=== PATIENT | female | born 1930 | race Caucasian/White ===

== ENCOUNTER 2018-03-04 13:11 | Emergency (ER) | payer MEDICARE ==
[2018-03-04 13:48] LABS: Bilirubin Negative (Negative); Blood, Urine Moderate (Negative); Glucose, Urine (Dipstick) Negative (Negative); Leukocyte Large (Negative); Nitrite Positive (Negative); Protein, Urine (Dipstick) 100 mg/dL (Neg-Trace); Specific Gravity, Urine 1.015 (1.005-1.030); Urobilinogen 0.2 mg/dL (0.2-1.0)
[2018-03-04 13:49] LABS: Clarity Cloudy (Clear)
[2018-03-04 13:57] LABS: Bacteria/HPF 4+ HPF (None Seen)
== END 2018-03-04 14:14 | disposition home or self-care (01) ==
LOC: SCSER 13:11
DX: N39.0 Urinary tract infection, site not specified (principal)
CPT/HCPCS: 81003; 81015; 87077; 87086; 87186; 99283

== ENCOUNTER 2018-05-21 14:00 | Outpatient (CLI) | payer MEDICARE ==
--- NOTE | 2018-05-21 15:22 | RAD ---
SKULL 3 VIEW SERIES: INDICATION: MRI screening for shunt catheter evaluation. FINDINGS: There is evidence of a mechanical programmable CSF shunt valve which overlies the left parietal skyler rium. This is consistent with a Medtronic Strata valve. This does preclude MR imaging as this will require attenuation both preceding and subsequent to the patient's MRI exam per standard MRI safety protocol. IMPRESSION: Evidence of a Medtronic Strata valve, which is a programmable cerebrospinal fluid shunt valve, requir ing direct attention both preceding and subsequent to patient's MRI exam, per standard MRI safety pro tocol. The patient's ordering physician's office will be notified by the retail service technician for arrangements in this regard. POS: CASE
== END 2018-05-21 14:01 ==
LOC: SCSMRI 14:00
PROVIDERS: ATTEND Orthopaedic Surgery
DX: Z45.41 Encounter for adjustment and management of cerebrospinal fluid drainage device (principal)
CPT/HCPCS: 70250

== ENCOUNTER 2018-06-08 13:47 | Outpatient (CLI) | payer MEDICARE ==
--- NOTE | 2018-06-08 16:47 | CT ---
CT CERVICAL SPINE NONCONTRAST: History: Neck pain. Right arm radiculopathy. FINDINGS: Disc space narrowing at each level. Vertebral heights are maintained. Shunt catheter is partially visualized along the right side of the neck. Reverse of the normal lordotic curvature. C2-3: Osteophytosis. Central canal and neural foramina are patent. C3-4: Minimal degenerative spondylolisthesis. Posterior osteophyte/disc complex. Prominent circumfere ntial degenerative changes. Moderate stenosis central canal. Severe stenosis left neural foramen. C4-5: Posterior osteophyte/disc complex. Circumferential degenerative changes with severe stenosis ce ntral canal. Moderate right and severe left foraminal stenosis. C5-6: Posterior osteophyte/disc complex. Circumferential degenerative changes. Severe stenosis centra l canal and right neural foramen. Mild stenosis left neural foramen. C6-7: Prominent posterior osteophyte/disc complex. Circumferential degenerative changes. Severe steno sis of the central canal. Severe right and mild left foraminal stenoses. C7-T1: Mild osteophytosis. Central canal and neural foramina are patent. IMPRESSION: Severe multilevel degenerative changes throughout the cervical spine as detailed above, including sherrie tral canal and right foraminal stenoses, most severe at the C6-7 level. POS: [facility]
== END 2018-06-08 13:48 | disposition home or self-care (01) ==
LOC: SCSCT 13:47
PROVIDERS: ATTEND Specialist
DX: M47.22 Other spondylosis with radiculopathy, cervical region (principal); M43.12 Spondylolisthesis, cervical region; M48.02 Spinal stenosis, cervical region; M99.81 Other biomechanical lesions of cervical region
CPT/HCPCS: 72125

== ENCOUNTER 2018-07-22 09:01 | Inpatient (IN) | payer MEDICARE ==
[2018-07-22 09:31] LABS: Hemoglobin 9.4 g/dL (12.0-16.0); Mean Corpuscular HGB CONC 30.1 g/dL (32.0-36.0); Mean Corpuscular Volume 63.2 fL (78.0-98.0); Mean Platelet Volume 7.9 fL (7.4-10.4); Platelet Count 141 thou/uL (130-400); RBC Distribution Width 12.5 % (11.5-14.5); Red Blood Cell (RBC) Count 4.92 mill/uL (4.20-5.40); White Blood Cell (WBC) Count 11.4 thou/uL (4.8-10.8)
[2018-07-22 09:40] LABS: ALT (SGPT) 49 U/L (8-55); AST (SGOT) 43 U/L (5-34); Alkaline Phosphatase 86 U/L (40-150); Anion Gap 15 mmol/L (10-20); BUN (Urea Nitrogen) 46 mg/dL (9.8-20.1); Bilirubin, Total 0.8 mg/dL (0.2-1.2); CK (CPK) 45 U/L (29-168); Calc. Creatinine Clearance 0 mL/min (70-130); Calcium 10.2 mg/dL (7.8-10.44); Carbon Dioxide 20 mmol/L (23-31); Chloride 109 mmol/L (98-107); Estimated GFR-MDRD 16; Globulin 2.6 g/dL (2.4-3.5); Glucose 156 mg/dL (83-110); Potassium 4.4 mmol/L (3.5-5.1); Protein, Total 6.6 g/dL (6.0-8.3); Sodium 140 mmol/L (136-145)
[2018-07-22 09:41] LABS: CKMB 0.7 ng/mL (0-6.6); Troponin I 0.019 ng/mL (< 0.028)
[2018-07-22 09:47] LABS: #Basophils 0.1 thou/uL (0.0-0.2); #Eosinphils 0.1 thou/uL (0.0-0.7); #Lymphocytes 1.7 thou/uL (1.20-3.40); #Monocytes 0.8 thou/uL (0.11-0.59); #Neutrophils 8.8 thou/uL (1.40-6.50); %Basophils 0.5 % (0.0-1.0); %Eosinophils 0.5 % (0.0-10.0); %Lymphocytes 14.6 % (21.0-51.0); %Neutrophils 77.4 % (42.0-75.0); Elliptocytes SLIGHT = 2-5 cells (100X) (0-1/hpf); Hypochromia SLIGHT = 6-15 cells (100X) (0-5/hpf); MDiff Complete? YES; Microcytosis MODERATE=15-30 cells (100X) (0-5/hpf); Ovalocytes SLIGHT = 2-5 cells (100X) (0-1/hpf); PLT Morphology Comment Appears Adequate; Polychromasia SLIGHT = 2-3 cells (100X) (0-2/hpf); Schistocytes SLIGHT = 2-5 cells (100X) (0-1/hpf)
--- NOTE | 2018-07-22 09:54 | RAD ---
PORTABLE UPRIGHT CHEST ONE VIEW: HISTORY: An 88-year-old female with a history of weakness for several weeks, dehydration, and vomiting. FINDINGS: A right ventriculoperitoneal shunt tube is noted. Monitor leads overly the chest. Heart size is wit hin normal limits. The lungs are clear. IMPRESSION: Right ventriculoperitoneal shunt tube. No acute intrathoracic disease. Atherosclerosis of the aorta . POS: C
[2018-07-22] MEDS ORDERED: Adacel (T-DAP) 0.5 ML VIAL ONE (10:09)
[2018-07-22] MEDS ORDERED: Ondansetron HCl/PF 4 MG/2 ML Vial ONE (10:09)
[2018-07-22 11:24] LABS: Bilirubin Negative (Negative); Blood, Urine Small (Negative); Clarity Cloudy (Clear); Glucose, Urine (Dipstick) Negative (Negative); Leukocyte Large (Negative); Nitrite Negative (Negative); Protein, Urine (Dipstick) 30 mg/dL (Neg-Trace); Urobilinogen 0.2 mg/dL (0.2-1.0)
[2018-07-22 11:31] LABS: Bacteria/HPF 2+ HPF (None Seen); Hyaline Casts/LPF NONE SEEN LPF (0-3 Hyaline); RBC/HPF 0-3 HPF (0-3); Squamous Epithelial 0-3 HPF (0-3); WBC/HPF 21-50 HPF (0-3)
[2018-07-22] MEDS ORDERED: Sodium Chloride 0.9% 100 ML ONE (12:13)
[2018-07-22] MEDS ORDERED: cefTRIAXone\\ROCEPHIN 1 GM VIAL ONE (12:13)
[2018-07-22 14:31] VITALS: BMI 27.3
[2018-07-22] MEDS ORDERED: traMADol HCl 50 MG TAB PO PRN (15:22)
[2018-07-22] MEDS ORDERED: Benzonatate 100 MG CAP PO PRN (15:22)
[2018-07-22] MEDS ORDERED: Bisacodyl 5 MG TAB PO PRN ×2 (15:22)
[2018-07-22] MEDS ORDERED: Ondansetron HCl/PF 4 MG/2 ML Vial IVP PRN (15:22)
[2018-07-22] MEDS ORDERED: Calcium Carbonate 500 MG ChewTAB PO PRN (15:22)
[2018-07-22] MEDS ORDERED: Loratadine 10 MG TAB PO PRN (15:22)
[2018-07-22] MEDS ORDERED: Mag-Al 1200 mg/1200 mg/30 ML UDCUP PO PRN (15:22)
[2018-07-22] MEDS ORDERED: hydrALAZINE 20 MG/ML VIAL SLOW IVP PRN (15:22)
[2018-07-22] MEDS ORDERED: Nitroglycerin 0.4 MG TAB (25 Tab Bottle) SL PRN (15:22)
[2018-07-22] MEDS ORDERED: cloNIDine 0.1 MG TAB PO PRN (15:22)
[2018-07-22] MEDS ORDERED: Senokot 8.6 MG TAB PO PRN ×2 (15:22)
[2018-07-22] MEDS ORDERED: Amlodipine 10 MG TAB PO SCH (15:30)
[2018-07-22] MEDS: Sodium Chloride 0.9% 1,000 ML IV SCH ×2 (15:46→15:52)
--- NOTE | 2018-07-22 16:41 | HP ---
DATE OF ADMISSION: 07/22/2018 PRIMARY CARE PHYSICIAN: Dr. John Zavala. CHIEF COMPLAINT: Fall and inability to get up. HISTORY OF PRESENT ILLNESS: Ms. Zepeda is a very pleasant 88-year-old female with past medical his tory of hypertension and dyslipidemia who presented to [facility] with above-ment ioned complaint. History is mainly obtained by the patient herself. Electronic medical records have been reviewed. Ms. Zepeda reports that usually she is quite weak at home, but gets better after she wakes up and e at some breakfast in the morning. She has to use a cane to walk around. She has been feeling a trung le more weak than usual for the last couple of days. She denies any recent illnesses. No fever, chi lls, no nausea, vomiting, constipation, or diarrhea. No chest pain, dizziness, palpitations or short ness of breath. She reports that she was sitting at the edge of the bed last night and when she trie d to get up, she just slid down. She did not fall or hit her head. Her tried to help her up , but was unable to do so. So, she slept on the floor all night with some blanket and pillows and he r called 911 this morning. Upon presentation to the emergency room, she was hemodynamically stable with blood pressure 149/59, p ulse of 99, and afebrile. Her 12-lead EKG was unremarkable. Her lab examination showed evidence of acute renal insufficiency with a GFR of 16, baseline unknown a s well as urinalysis consistent with urinary tract infection. The patient does report that she was s een by primary care physician yesterday and was given nitrofurantoin, which she has barely taken. Sh michele has been having complaints of dysuria. She was given Rocephin as well as DTaP in the emergency room along with IV fluids and is now being ad mitted to the hospital under observation status for urinary tract infection and acute renal insuffici ency, likely related to dehydration. Her creatinine kinase is normal at 45. PAST MEDICAL HISTORY: Hypertension. PAST SURGICAL HISTORY: Hysterectomy and a brain shunt operation what sounds like a normal pressure h ydrocephalus. PSYCHIATRIC HISTORY: None. SOCIAL HISTORY: She is and lives with her who helps around the house. No history of drug, tobacco or alcohol abuse. FAMILY HISTORY: Significant for breast cancer in her mother as well as colon cancer in her father. The patient has had routine mammograms and colonoscopy, but she has quit getting it done because of a dvanced age. ALLERGIES: CIPROFLOXACIN. CURRENT MEDICATION: Nebivolol 10 mg daily, amlodipine/valsartan 10/320 one tablet p.o. daily. CODE STATUS: DO NOT RESUSCITATE, discussed with the patient in detail. REVIEW OF SYSTEMS: A 12-point review of systems is done. It is negative except for those mentioned in the history and physical. LABORATORY DATA: CBC shows WBCs 11.4, hemoglobin 9.4, platelet count of 141, microcytic hypochromic anemia 77% neutrophils. Serum chemistry shows bicarbonate 20, BUN 46, creatinine 2.75, blood sugar 156, AST 43. Cardiac enzy mes unremarkable. Urinalysis has some protein, large leukocyte esterase, +2 bacteria and WBCs. Ches t x-ray by my review has no evidence to suggest acute pulmonary edema or infiltrate. A right ventric uloperitoneal shunt tube is seen. A 12-lead EKG by my review shows normal sinus rhythm without acute ST or T-wave changes. PHYSICAL EXAMINATION: VITAL SIGNS: Temperature 98, pulse of 84, respirations 18, saturating 93% on room air, blood pressur e 150/58. GENERAL: She does appear pale, but in no acute distress. She is comfortably lying in bed, little [address] of hearing. HEENT: Mucous membranes are slightly dry. No oropharyngeal exudate or erythema. Head is normocepha lic, atraumatic. Pupils equal, reactive to light and accommodation. Extraocular movement intact. NECK: Supple without any lymphadenopathy, JVD or bruit. CHEST: Clear to auscultation without any wheezing, rales or rhonchi. Rate and rhythm is regular, so ft, systolic murmur is heard at the second intercostal space. ABDOMEN: Soft, nontender, nondistended, moderately obese. No rebound, guarding or rigidity. EXTREMITIES: Free of any cyanosis, clubbing, or edema. NEUROLOGIC: Nonfocal. SKIN: Free of any rashes or bruises. Feel warm and dry to touch. PSYCHIATRIC: Normal affect. IMPRESSION AND PLAN: 1. Acute renal insufficiency. This is likely a combination of dehydration with a urinary tract infe ction. The patient will be treated with IV fluids. She does tell me that she has seen a nephrologis t in the past in the [place] area and was told that her kidney function 70%. I do not know what this means. The patient might have some baseline chronic kidney disease, but no previous labs are availa ble for review. We will repeat labs in the morning and avoid any nephrotoxic medications. At this t [place], we will hold her ARBs in the light of acute renal insufficiency. 2. Urinary tract infection. Urine cultures, blood cultures have been obtained in [facility] erg[facility]. We will follow the results. Continue Rocephin for now. 3. Microcytic hypochromic anemia. The review of the smear has been submitted for pathologist review . We will check iron indices as well as B12, folic acid levels. Likely iron deficiency anemia. She will be started on iron supplements if that is the case. We will also check TSH to rule out hypothy roidism as a cause. 4. Hypertension, elevated blood pressure for now. We will restart her home medications and add p.r. n. antihypertensives. 5. History of normal pressure hydrocephalus, status post SPINNER IRON shunt. Currently, stable status. 6. Code status: DO NOT RESUSCITATE or INTUBATE as discussed with the patient. 7. Deep venous thrombosis and gastrointestinal prophylaxis. 8. Fall. We will have OT, PT evaluate her and had case management help with setting up of home heal th as per the patient wishes. She does not wish to go to rehabilitation. DISPOSITION: Ms. Zepeda is currently being admitted for acute renal insufficiency and urinary trac t infection after sustaining a fall and inability to get up. Further management will depend upon her clinical course. Currently, she is observation status.
[2018-07-22 18:08] LABS: Iron 9 ug/dL (50-170); Iron Binding Capacity, Total 249 mcg/dL (265-497)
[2018-07-23] MEDS: Sodium Chloride 0.9% 1,000 ML IV SCH ×5 (01:55→13:21)
[2018-07-23 05:33] LABS: Anion Gap 10 mmol/L (10-20); BUN (Urea Nitrogen) 34 mg/dL (9.8-20.1); Calc. Creatinine Clearance 20 mL/min (70-130); Calcium 8.6 mg/dL (7.8-10.44); Carbon Dioxide 20 mmol/L (23-31); Chloride 117 mmol/L (98-107); Estimated GFR-MDRD 20; Glucose 95 mg/dL (83-110); Potassium 4.4 mmol/L (3.5-5.1); Sodium 143 mmol/L (136-145)
[2018-07-23 05:51] LABS: #Eosinphils 0.1 thou/uL (0.0-0.7); #Lymphocytes 1.5 thou/uL (1.20-3.40); #Monocytes 0.4 thou/uL (0.11-0.59); #Neutrophils 4.5 thou/uL (1.40-6.50); %Basophils 0.2 % (0.0-1.0); %Eosinophils 0.9 % (0.0-10.0); %Lymphocytes 23.1 % (21.0-51.0); %Monocytes 6.6 % (0.0-10.0); %Neutrophils 69.2 % (42.0-75.0); Hemoglobin 7.8 g/dL (12.0-16.0); Mean Corpuscular HGB CONC 31.8 g/dL (32.0-36.0); Mean Corpuscular Volume 62.9 fL (78.0-98.0); Mean Platelet Volume 10.2 fL (7.4-10.4); Platelet Count 121 thou/uL (130-400); RBC Distribution Width 14.8 % (11.5-14.5); Red Blood Cell (RBC) Count 3.88 mill/uL (4.20-5.40); White Blood Cell (WBC) Count 6.5 thou/uL (4.8-10.8)
[2018-07-23 06:05] LABS: Folate (Folic Acid) 15.4 ng/mL (7.0-31.4)
[2018-07-23] MEDS ORDERED: Enoxaparin Sodium 40 MG/0.4 ML SYRINGE SC SCH (09:00)
[2018-07-23] MEDS ORDERED: IRON SUCROSE COMPLEX 100 MG/5 ML SLOW IVP SCH (09:00)
[2018-07-23] MEDS: Amlodipine 10 MG TAB PO SCH (09:21)
[2018-07-23] MEDS: Nebivolol HCl 5 MG TAB PO SCH (09:21)
[2018-07-23] MEDS ORDERED: Sodium Ferric Gluconate 250 MG in Sodium Chloride 0.9% 100 ML IVPB SCH (10:00)
--- NOTE | 2018-07-23 11:05 | CON ---
DATE OF CONSULTATION: 07/23/2018 HISTORY OF PRESENT ILLNESS: Ms. Zepeda is an 88-year-old white female with known history of chroni c renal failure, hypertension, and admitted for generalized weakness. She has history of decreased p .o. intake. She also had a fall recently. She has been admitted for volume repletion due to a possi bility of volume depletion. We are now being consulted for her chronic renal failure. Please note t hat the patient has been told that she has renal dysfunction. She was seen by a [facility] telemarketing agent at one time. Further evaluate her chronic renal failure. Please note a renal ultrasound has already been ordered. REVIEW OF SYSTEMS: Positive for generalized malaise. Positive for decreased p.o. intake. No chest pain or shortness of breath, no nausea, no vomiting, no gross hematuria, no dysuria, no fever or chil ls, no abdominal pain, no chest pain or shortness of breath, no abdominal pain. Appetite and energy level is decreased. HOME MEDICATIONS: Nitrofurantoin 100 mg, currently not taking, Bystolic 10 mg daily, amlodipine/vals kwadwo 10/320 once a day. PAST MEDICAL HISTORY: 1. Chronic renal failure - ____ etiology. 2. Longstanding hypertension. PAST SURGICAL HISTORY: 1. Status post hysterectomy. 2. Status post CORE DRILLER HELPER shunt placement. 3. Status post colonoscopy. SOCIAL HISTORY: The patient is and lives with her . She lives in [place]. O ne child. No history of smoking, no alcohol intake, no IV drug abuse. Retired insurance worker. Ed ucation; high school. Denies any blood transfusion. ALLERGIES: CIPROFLOXACIN. TRAUMA: Status post fall. IMMUNIZATIONS: Up to date. HOSPITALIZATIONS: Please see past medical history. FAMILY HISTORY: No family history of ESRD. PHYSICAL EXAMINATION: VITAL SIGNS: Blood pressure this 144/64, heart rate 79, respiratory rate 20, temperature 97.5, pulse ox 96%. GENERAL: Awake, alert, comfortable, supine. SKIN: Decreased turgor. HEENT: Pale conjunctivae, anicteric sclerae. NECK: No neck mass, no carotid bruits, no JVD. CHEST: No deformities. LUNGS: Clear breath sounds, no wheezing, no crackles. HEART: Normal sinus rhythm. No murmur, no gallops or rubs. ABDOMEN: Globular, soft, nontender, no masses. EXTREMITIES: No edema. NEUROLOGIC: Moving all extremities. No tremors, no asterixis, no ataxia, oriented in 3 spheres. MEDICATIONS Norvasc 10 mg daily, Tessalon 100 mg q.4 hourly p.r.n., Dulcolax 10 mg daily, calcium ca rbonate 1000 mg q.4 hours, Catapres 0.14 mg p.r.n., amlodipine is 10 mg daily, Lovenox 40 mg subcu da ekaterina, Bystolic 10 mg daily, normal saline at 50 mL per hour, Ultram 50 mg q.4h. p.r.n. LABORATORY: 07/23/2018 - White count 6.5, hemoglobin 7.8. Sodium 143, potassium 4.4, chloride 117, carbon dioxide 20, BUN 34, creatinine 2.36, glucose 95, calcium 8.6. 07/22/2018 - Creatinine 2.75. Urinalysis; protein is 30, WBC 21-50, RBCs 0-3, bacteria 2+. Renal ultrasound is pending. Chest x-ray shows no overt CHF. ASSESSMENT AND PLAN: 1. Acute kidney injury on top of her chronic renal failure, consider superimposed prerenal azotemia from volume depletion. Agree to hold off valsartan to see if we can improve the renal function furth er. No indication for any dialytic intervention. 2. Chronic renal failure with proteinuria, longstanding history of hypertension, consider the possib ility of hypertensive nephropathy. Renal ultrasound is pending. 3. Hypertension, adequate control. Continue current blood pressure meds. Thank you for the consult. We will continue to follow. Review of the urine sediment does not sugges t she has acute tubular necrosis. I agree with current management.
[2018-07-23] MEDS: cefTRIAXone\\ROCEPHIN 1 GM in Sodium Chloride 0.9% 100 ML IVPB SCH (11:26)
--- NOTE | 2018-07-23 12:21 | ULT ---
RENAL ULTRASOUND: DATE: 07/23/18. COMPARISON: None. HISTORY: Acute kidney insufficiency, chronic kidney disease. TECHNIQUE: Multiplanar, coats scale, sonographic imaging of the kidneys and urinary bladder obtained. FINDINGS: The right kidney measures 8.7 x 5.0 x 5.4 cm. The left kidney measures 9.7 x 4.8 x 5.8 cm. There is a cyst in the upper pole of the right kidney measuring 2.7 x 2.1 x 2.2 cm. There is no donna d renal mass, hydronephrosis, or renal stone noted on the right. There is a cyst within the left kidney measuring 3.4 x 3.3 x 3.0 cm. No solid renal mass, hydroneph rosis, or stone is appreciated on the left. Detailed assessment of the left kidney is quite limited, however, on the basis of body habitus and motion. The urinary bladder is grossly unremarkable. IMPRESSION: Bilateral renal cysts. No hydronephrosis is seen. Left kidney is markedly limited in assessment sec ondary to technical factors. POS: CASE
--- NOTE | 2018-07-23 15:55 | PDOC.PN ---
- Subjective Encounter Start Date: 07/23/18 Encounter Start Time: 15:53 Subjective: feels better but did slid down of the bed again this morning -: no CP/SOB.Weak - Objective Resuscitation Status: Resuscitation Status DNR:Do Not Resuscitate MAR Reviewed: Yes Vital Signs & Weight: Vital Signs (12 hours) Temp Pulse Pulse Pulse Resp BP BP 07/23/18 15:34 98.1 F 71 20 07/23/18 13:51 73 74 146/65 H 180/74 H 07/23/18 13:02 76 07/23/18 13:01 69 07/23/18 12:46 97.4 F L 71 20 07/23/18 09:21 79 07/23/18 08:00 97.5 F L 79 20 BP BP BP Pulse Ox 07/23/18 15:34 148/63 H 94 L 07/23/18 13:51 07/23/18 13:02 139/73 07/23/18 13:01 149/65 H 07/23/18 12:46 157/66 H 96 07/23/18 09:21 07/23/18 08:00 144/64 H 96 Weight Weight 164 lb 6.4 oz I&O: 07/22/18 07/23/18 07/24/18 06:59 06:59 06:59 Intake Total 1840 220 Output Total 1150 Balance 690 220 Result Diagrams: 07/23/18 04:17 07/23/18 04:17 Additional Labs: Microbiology 07/22/18 11:57 Venous blood - Right Hand Blood Culture - Preliminary Specimen has been received and culture in progress. No Growth to date. 07/22/18 11:50 Venous blood - Left Arm Blood Culture - Preliminary Specimen has been received and culture in progress. No Growth to date. 07/22/18 11:15 Urine voided Urine Culture - Preliminary Escherichia coli Laboratory Tests 07/22/18 07/22/18 07/23/18 09:15 17:13 04:17 Creatinine 2.75 H 2.36 H Iron 9 L TIBC 249 L Vitamin B12 Folate TSH 3rd Generation 07/23/18 07/23/18 04:17 04:17 Creatinine Iron TIBC Vitamin B12 597 Folate 15.40 TSH 3rd Generation 0.9767 Phys Exam - Physical Examination Constitutional: NAD HEENT: PERRLA, moist MMs, sclera anicteric, oral pharynx no lesions Neck: no nodes, no JVD, supple, full ROM Respiratory: no wheezing, no rales, no rhonchi, clear to auscultation bilateral Cardiovascular: RRR, no significant murmur, no rub Gastrointestinal: soft, non-tender, no distention, positive bowel sounds Musculoskeletal: no edema, pulses present Neurological: non-focal, normal sensation, moves all 4 limbs Psychiatric: normal affect, A&O x 3 Skin: no rash Dx/Plan (1) OSBALDO (acute kidney injury) Code(s): N17.9 - ACUTE KIDNEY FAILURE, UNSPECIFIED Status: Acute (2) UTI (urinary tract infection) Status: Acute (3) Dehydration Code(s): E86.0 - DEHYDRATION Status: Acute (4) Acute on chronic anemia Code(s): D64.9 - ANEMIA, UNSPECIFIED Status: Acute Comment: Stewart Richards. Iron levels low (5) Fall Code(s): W19.XXXA - UNSPECIFIED FALL, INITIAL ENCOUNTER Status: Acute (6) Thalassemia trait Code(s): D56.3 - THALASSEMIA MINOR Status: Acute (7) HTN (hypertension) Code(s): I10 - ESSENTIAL (PRIMARY) HYPERTENSION Status: Acute (8) CARTOGRAPHIC TECHNICIAN (ventriculoperitoneal) shunt status Status: Acute (9) Muscular deconditioning Code(s): R29.898 - OTH SYMPTOMS AND SIGNS INVOLVING THE MUSCULOSKELETAL SYSTEM Status: Chronic - Plan plan discussed w/ family, continue antibiotics, PT/OT, out of bed/ambulate, DVT proph w/SCDs give IV iron. Monitor H/H.reduce IVF -: cont ABx. follow urine cx -: Renal Fx not imroving as expected-suspect CKD.will consult nephrology -: Discussed w EHR-Pt Inpatient appropriate.will change -: am labs * . Review of Systems - Review of Systems Constitutional: weakness, malaise. negative: fever, chills, sweats, other Cardiovascular: negative: chest pain, palpitations, orthopnea, paroxysmal nocturnal dyspnea, edema, light headedness, other Gastrointestinal: negative: Nausea, Vomiting, Abdominal Pain, Diarrhea, Constipation, Melena, Hematochezia, Other Genitourinary: negative: Dysuria, Frequency, Incontinence, Hematuria, Retention , Other Musculoskeletal: negative: Neck Pain, Shoulder Pain, Arm Pain, Back Pain, Hand Pain, Leg Pain, Foot Pain, Other Skin: negative: Rash, Lesions, Gus, Bruising, Other Neurological: negative: Weakness, Numbness, Incoordination, Change in Speech, Confusion, Seizures, Other - Medications/Allergies Allergies/Adverse Reactions: Allergies Allergy/AdvReac Type Severity Reaction Status Date / Time ciprofloxacin [From Cipro] Allergy Verified 07/22/18 14:28 Medications: Current Medications Acetaminophen (Tylenol) 650 mg PO Q4H PRN PRN Reason: Headache/Fever or Pain Al Hydroxide/Mg Hydroxide (Maalox) 30 ml PO Q6H PRN PRN Reason: Heartburn or Indigestion Amlodipine Besylate (Norvasc) 10 mg PO DAILY [facility] Last Admin: 07/23/18 09:21 Dose: 10 mg Benzonatate (Tessalon) 100 mg PO Q4H PRN PRN Reason: Cough Bisacodyl (Dulcolax) 10 mg PO DAILYPRN PRN PRN Reason: Constipation Calcium Carbonate (Tums) 1,000 mg PO Q4H PRN PRN Reason: Heartburn or Indigestion Clonidine (Catapres) 0.1 mg PO Q4H PRN PRN Reason: Systolic BP > 160 Enoxaparin Sodium (Lovenox) 30 mg SC 0900 [facility] Hydralazine HCl (Apresoline) 10 mg SLOW IVP Q4H PRN PRN Reason: Systolic BP > 170 Ceftriaxone Sodium 1 gm/ (Sodium Chloride) 100 mls @ 200 mls/hr IVPB 1200 [facility] Last Admin: 07/23/18 11:26 Dose: 100 mls Sodium Chloride (Normal Saline 0.9%) 1,000 mls @ 50 mls/hr IV .Q20H [facility] Last Admin: 07/23/18 13:21 Dose: 1,000 mls Loratadine (Claritin) 10 mg PO DAILYPRN PRN PRN Reason: Sinus Symptoms Nebivolol (Bystolic) 10 mg PO DAILY [facility] Last Admin: 07/23/18 09:21 Dose: 10 mg Nitroglycerin (Nitrostat) 0.4 mg SL Q5MIN PRN PRN Reason: Chest Pain Ondansetron HCl (Zofran) 4 mg IVP Q6H PRN PRN Reason: Nausea/Vomiting Senna (Senokot) 2 tab PO HSPRN PRN PRN Reason: Constipation Senna (Senokot) 2 tab PO HSPRN PRN PRN Reason: Constipation Sodium Chloride (Flush - Normal Saline) 10 ml IVF Q12HR [facility] Last Admin: 07/23/18 09:21 Dose: 10 ml Sodium Chloride (Flush - Normal Saline) 10 ml IVF PRN PRN PRN Reason: Saline Flush Tramadol HCl (Ultram) 50 mg PO Q4H PRN PRN Reason: Moderate Pain (4-6)
[2018-07-24 05:03] LABS: Anion Gap 11 mmol/L (10-20); BUN (Urea Nitrogen) 22 mg/dL (9.8-20.1); Calc. Creatinine Clearance 24 mL/min (70-130); Calcium 8.5 mg/dL (7.8-10.44); Carbon Dioxide 19 mmol/L (23-31); Chloride 117 mmol/L (98-107); Estimated GFR-MDRD 24; Glucose 106 mg/dL (83-110); Potassium 4.2 mmol/L (3.5-5.1); Sodium 143 mmol/L (136-145)
[2018-07-24] MEDS: Enoxaparin Sodium 30 MG/0.3 ML SYRINGE SC SCH (07:13)
[2018-07-24 07:16] LABS: #Eosinphils 0.1 thou/uL (0.0-0.7); #Lymphocytes 1.2 thou/uL (1.20-3.40); #Monocytes 0.4 thou/uL (0.11-0.59); #Neutrophils 2.8 thou/uL (1.40-6.50); %Basophils 0.4 % (0.0-1.0); %Eosinophils 1.8 % (0.0-10.0); %Lymphocytes 27.1 % (21.0-51.0); %Monocytes 9.5 % (0.0-10.0); %Neutrophils 61.2 % (42.0-75.0); Hemoglobin 8.1 g/dL (12.0-16.0); Mean Corpuscular HGB CONC 31.7 g/dL (32.0-36.0); Mean Corpuscular Hemoglobin 19.6 pg (27.0-31.0); Mean Corpuscular Volume 61.7 fL (78.0-98.0); Mean Platelet Volume 5.3 fL (7.4-10.4); Platelet Count 122 thou/uL (130-400); RBC Distribution Width 14.7 % (11.5-14.5); Red Blood Cell (RBC) Count 4.14 mill/uL (4.20-5.40); White Blood Cell (WBC) Count 4.6 thou/uL (4.8-10.8)
[2018-07-24 07:35] LABS: Anion Gap 9 mmol/L (10-20); BUN (Urea Nitrogen) 21 mg/dL (9.8-20.1); Calc. Creatinine Clearance 24 mL/min (70-130); Calcium 8.5 mg/dL (7.8-10.44); Carbon Dioxide 20 mmol/L (23-31); Chloride 117 mmol/L (98-107); Estimated GFR-MDRD 24; Glucose 111 mg/dL (83-110); Potassium 4.2 mmol/L (3.5-5.1); Sodium 142 mmol/L (136-145)
[2018-07-24] MEDS: cefTRIAXone\\ROCEPHIN 1 GM in Sodium Chloride 0.9% 100 ML IVPB SCH (08:33)
[2018-07-24] MEDS: Nebivolol HCl 5 MG TAB PO SCH (08:33)
[2018-07-24] MEDS: Amlodipine 10 MG TAB PO SCH (08:35)
--- NOTE | 2018-07-24 11:17 | PDOC.PN ---
- Subjective Encounter Start Date: 07/24/18 Encounter Start Time: 08:30 -: old records requested/rev Patient seen and examined. No new complaints. No overnight events pt's renal function has not improved - Objective Resuscitation Status: Resuscitation Status DNR:Do Not Resuscitate MAR Reviewed: Yes Vital Signs & Weight: Vital Signs (12 hours) Temp Pulse Resp BP BP Pulse Ox 07/24/18 08:35 73 07/24/18 07:33 97.9 F 73 18 149/81 H 93 L 07/24/18 04:00 98.7 F 73 16 135/65 93 L 07/24/18 00:00 98.7 F 78 18 147/71 H 95 Weight Weight 164 lb 6.4 oz I&O: 07/23/18 07/24/18 07/25/18 06:59 06:59 06:59 Intake Total 1840 1670 Output Total 1150 850 Balance 690 820 Result Diagrams: 07/24/18 07:02 07/24/18 07:02 Phys Exam - Physical Examination Constitutional: NAD HEENT: PERRLA, moist MMs, sclera anicteric Neck: no JVD, supple Respiratory: no wheezing, no rales, no rhonchi Cardiovascular: RRR, no significant murmur, no rub Gastrointestinal: soft, non-tender, no distention, positive bowel sounds Musculoskeletal: no edema, pulses present Neurological: non-focal, normal sensation Psychiatric: normal affect, A&O x 3 Skin: no rash, normal turgor Dx/Plan (1) OSBALDO (acute kidney injury) Code(s): N17.9 - ACUTE KIDNEY FAILURE, UNSPECIFIED Status: Acute (2) Acute on chronic anemia Code(s): D64.9 - ANEMIA, UNSPECIFIED Status: Acute Comment: (3) Dehydration Code(s): E86.0 - DEHYDRATION Status: Acute (4) Fall Code(s): W19.XXXA - UNSPECIFIED FALL, INITIAL ENCOUNTER Status: Acute (5) HTN (hypertension) Code(s): I10 - ESSENTIAL (PRIMARY) HYPERTENSION Status: Acute (6) Thalassemia trait Code(s): D56.3 - THALASSEMIA MINOR Status: Acute (7) UTI (urinary tract infection) Status: Acute (8) 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 Review of Systems - Review of Systems Eyes: negative: Pain, Vision Change, Conjunctivae Inflammation, Eyelid Inflammation, Redness, Other ENT: negative: Ear Pain, Ear Discharge, Nose Pain, Nose Discharge, Nose Congestion, Mouth Pain, Mouth Swelling, Throat Pain, Throat Swelling, Other Respiratory: negative: Cough, Dry, Shortness of Breath, Hemoptysis, SOB with Excertion, Pleuritic Pain, Sputum, Wheezing Cardiovascular: negative: chest pain, palpitations, orthopnea, paroxysmal nocturnal dyspnea, edema, light headedness, other Gastrointestinal: negative: Nausea, Vomiting, Abdominal Pain, Diarrhea, Constipation, Melena, Hematochezia, Other Genitourinary: negative: Dysuria, Frequency, Incontinence, Hematuria, Retention , Other Musculoskeletal: negative: Neck Pain, Shoulder Pain, Arm Pain, Back Pain, Hand Pain, Leg Pain, Foot Pain, Other Skin: negative: Rash, Lesions, Gus, Bruising, Other - Medications/Allergies Allergies/Adverse Reactions: Allergies Allergy/AdvReac Type Severity Reaction Status Date / Time ciprofloxacin [From Cipro] Allergy Verified 07/22/18 14:28 Medications: Current Medications Acetaminophen (Tylenol) 650 mg PO Q4H PRN PRN Reason: Headache/Fever or Pain Al Hydroxide/Mg Hydroxide (Maalox) 30 ml PO Q6H PRN PRN Reason: Heartburn or Indigestion Amlodipine Besylate (Norvasc) 10 mg PO DAILY [facility] Last Admin: 07/24/18 08:35 Dose: 10 mg Benzonatate (Tessalon) 100 mg PO Q4H PRN PRN Reason: Cough Bisacodyl (Dulcolax) 10 mg PO DAILYPRN PRN PRN Reason: Constipation Calcium Carbonate (Tums) 1,000 mg PO Q4H PRN PRN Reason: Heartburn or Indigestion Clonidine (Catapres) 0.1 mg PO Q4H PRN PRN Reason: Systolic BP > 160 Enoxaparin Sodium (Lovenox) 30 mg SC 0900 [facility] Last Admin: 07/24/18 07:13 Dose: Not Given Hydralazine HCl (Apresoline) 10 mg SLOW IVP Q4H PRN PRN Reason: Systolic BP > 170 Ceftriaxone Sodium 1 gm/ (Sodium Chloride) 100 mls @ 200 mls/hr IVPB 1200 [facility] Last Admin: 07/24/18 08:33 Dose: 100 mls Sodium Bicarbonate 100 meq/ (Sodium Chloride) 1,100 mls @ 100 mls/hr IV .Q11H [facility] Loratadine (Claritin) 10 mg PO DAILYPRN PRN PRN Reason: Sinus Symptoms Nebivolol (Bystolic) 10 mg PO DAILY [facility] Last Admin: 07/24/18 08:33 Dose: 10 mg Nitroglycerin (Nitrostat) 0.4 mg SL Q5MIN PRN PRN Reason: Chest Pain Ondansetron HCl (Zofran) 4 mg IVP Q6H PRN PRN Reason: Nausea/Vomiting Senna (Senokot) 2 tab PO HSPRN PRN PRN Reason: Constipation Senna (Senokot) 2 tab PO HSPRN PRN PRN Reason: Constipation Sodium Chloride (Flush - Normal Saline) 10 ml IVF Q12HR [facility] Last Admin: 07/24/18 08:34 Dose: Not Given Sodium Chloride (Flush - Normal Saline) 10 ml IVF PRN PRN PRN Reason: Saline Flush Tramadol HCl (Ultram) 50 mg PO Q4H PRN PRN Reason: Moderate Pain (4-6)
[2018-07-24] MEDS: Sodium Bicarbonate 100 MEQ in Sodium Chloride 0.45% 1,000 ML IV SCH ×2 (17:13→20:06)
[2018-07-24] MEDS: Acetaminophen 325 MG TAB PO PRN (21:18)
[2018-07-25] MEDS: Enoxaparin Sodium 30 MG/0.3 ML SYRINGE SC SCH (08:09)
[2018-07-25] MEDS: Amlodipine 10 MG TAB PO SCH (08:09)
[2018-07-25] MEDS: Nebivolol HCl 5 MG TAB PO SCH (08:09)
[2018-07-25 08:15] VITALS: BP 146/80; TEMP 98.1
[2018-07-25 10:04] LABS: Hemoglobin 9.1 g/dL (12.0-16.0); Mean Corpuscular HGB CONC 31.6 g/dL (32.0-36.0); Mean Corpuscular Hemoglobin 19.7 pg (27.0-31.0); Mean Corpuscular Volume 62.2 fL (78.0-98.0); Platelet Count 144 thou/uL (130-400); RBC Distribution Width 14.5 % (11.5-14.5); Red Blood Cell (RBC) Count 4.61 mill/uL (4.20-5.40); White Blood Cell (WBC) Count 4.1 thou/uL (4.8-10.8)
--- NOTE | 2018-07-25 10:06 | PDOC.PN ---
- Subjective Encounter Start Date: 07/25/18 Encounter Start Time: 08:30 Patient seen and examined. No new complaints. No overnight events - Objective Resuscitation Status: Resuscitation Status DNR:Do Not Resuscitate MAR Reviewed: Yes Vital Signs & Weight: Vital Signs (12 hours) Temp Pulse Resp BP Pulse Ox 07/25/18 08:09 69 07/25/18 08:00 98.1 F 70 16 146/80 H 95 Weight Weight 164 lb 6.4 oz I&O: 07/24/18 07/25/18 07/26/18 06:59 06:59 06:59 Intake Total 1670 4000 Output Total 850 Balance 820 4000 Result Diagrams: 07/25/18 09:28 07/24/18 07:02 Phys Exam - Physical Examination Constitutional: NAD HEENT: PERRLA, moist MMs, sclera anicteric Neck: no JVD, supple Respiratory: no wheezing, no rales, no rhonchi Cardiovascular: RRR, no significant murmur, no rub Gastrointestinal: soft, non-tender, no distention, positive bowel sounds Musculoskeletal: no edema, pulses present Neurological: non-focal, normal sensation, moves all 4 limbs Psychiatric: normal affect, A&O x 3 Skin: no rash, normal turgor Dx/Plan (1) OSBALDO (acute kidney injury) Code(s): N17.9 - ACUTE KIDNEY FAILURE, UNSPECIFIED Status: Acute (2) Acute on chronic anemia Code(s): D64.9 - ANEMIA, UNSPECIFIED Status: Acute Comment: (3) Dehydration Code(s): E86.0 - DEHYDRATION Status: Acute (4) Fall Code(s): W19.XXXA - UNSPECIFIED FALL, INITIAL ENCOUNTER Status: Acute (5) HTN (hypertension) Code(s): I10 - ESSENTIAL (PRIMARY) HYPERTENSION Status: Acute (6) Thalassemia trait Code(s): D56.3 - THALASSEMIA MINOR Status: Acute (7) UTI (urinary tract infection) Status: Acute (8) SALESPERSON FURNITURE (ventriculoperitoneal) shunt status Status: Acute (9) Muscular deconditioning Code(s): R29.898 - OTH SYMPTOMS AND SIGNS INVOLVING THE MUSCULOSKELETAL SYSTEM Status: Chronic - Plan cont current plan of care, continue antibiotics * medication reviewed as below * symptomatic treatment * on discharge omnicef * repeat labs today. Review of Systems - Review of Systems Eyes: negative: Pain, Vision Change, Conjunctivae Inflammation, Eyelid Inflammation, Redness, Other ENT: negative: Ear Pain, Ear Discharge, Nose Pain, Nose Discharge, Nose Congestion, Mouth Pain, Mouth Swelling, Throat Pain, Throat Swelling, Other Respiratory: negative: Cough, Dry, Shortness of Breath, Hemoptysis, SOB with Excertion, Pleuritic Pain, Sputum, Wheezing Cardiovascular: negative: chest pain, palpitations, orthopnea, paroxysmal nocturnal dyspnea, edema, light headedness, other Gastrointestinal: negative: Nausea, Vomiting, Abdominal Pain, Diarrhea, Constipation, Melena, Hematochezia, Other Genitourinary: negative: Dysuria, Frequency, Incontinence, Hematuria, Retention , Other Musculoskeletal: negative: Neck Pain, Shoulder Pain, Arm Pain, Back Pain, Hand Pain, Leg Pain, Foot Pain, Other - Medications/Allergies Allergies/Adverse Reactions: Allergies Allergy/AdvReac Type Severity Reaction Status Date / Time ciprofloxacin [From Cipro] Allergy Verified 07/22/18 14:28 Medications: Current Medications Acetaminophen (Tylenol) 650 mg PO Q4H PRN PRN Reason: Headache/Fever or Pain Last Admin: 07/24/18 21:18 Dose: 650 mg Al Hydroxide/Mg Hydroxide (Maalox) 30 ml PO Q6H PRN PRN Reason: Heartburn or Indigestion Amlodipine Besylate (Norvasc) 10 mg PO DAILY [facility] Last Admin: 07/25/18 08:09 Dose: 10 mg Benzonatate (Tessalon) 100 mg PO Q4H PRN PRN Reason: Cough Bisacodyl (Dulcolax) 10 mg PO DAILYPRN PRN PRN Reason: Constipation Calcium Carbonate (Tums) 1,000 mg PO Q4H PRN PRN Reason: Heartburn or Indigestion Clonidine (Catapres) 0.1 mg PO Q4H PRN PRN Reason: Systolic BP > 160 Enoxaparin Sodium (Lovenox) 30 mg SC 0900 [facility] Last Admin: 07/25/18 08:09 Dose: Not Given Hydralazine HCl (Apresoline) 10 mg SLOW IVP Q4H PRN PRN Reason: Systolic BP > 170 Ceftriaxone Sodium 1 gm/ (Sodium Chloride) 100 mls @ 200 mls/hr IVPB 1200 [facility] Last Admin: 07/24/18 08:33 Dose: 100 mls Sodium Bicarbonate 100 meq/ (Sodium Chloride) 1,100 mls @ 100 mls/hr IV .Q11H [facility] Last Admin: 07/24/18 20:06 Dose: Not Given Loratadine (Claritin) 10 mg PO DAILYPRN PRN PRN Reason: Sinus Symptoms Nebivolol (Bystolic) 10 mg PO DAILY [facility] Last Admin: 07/25/18 08:09 Dose: 10 mg Nitroglycerin (Nitrostat) 0.4 mg SL Q5MIN PRN PRN Reason: Chest Pain Ondansetron HCl (Zofran) 4 mg IVP Q6H PRN PRN Reason: Nausea/Vomiting Senna (Senokot) 2 tab PO HSPRN PRN PRN Reason: Constipation Senna (Senokot) 2 tab PO HSPRN PRN PRN Reason: Constipation Sodium Chloride (Flush - Normal Saline) 10 ml IVF Q12HR [facility] Last Admin: 07/25/18 08:10 Dose: Not Given Sodium Chloride (Flush - Normal Saline) 10 ml IVF PRN PRN PRN Reason: Saline Flush Tramadol HCl (Ultram) 50 mg PO Q4H PRN PRN Reason: Moderate Pain (4-6)
[2018-07-25 10:12] LABS: Anion Gap 12 mmol/L (10-20); BUN (Urea Nitrogen) 16 mg/dL (9.8-20.1); Calc. Creatinine Clearance 29 mL/min (70-130); Carbon Dioxide 24 mmol/L (23-31); Chloride 111 mmol/L (98-107); Estimated GFR-MDRD 29; Glucose 111 mg/dL (83-110); Potassium 3.9 mmol/L (3.5-5.1); Sodium 143 mmol/L (136-145)
[2018-07-25] MEDS: Acetaminophen 325 MG TAB PO PRN (10:20)
[2018-07-25] MEDS: Sodium Bicarbonate 100 MEQ in Sodium Chloride 0.45% 1,000 ML IV SCH (10:30)
[2018-07-25 10:34] LABS: #Eosinphils 0.1 thou/uL (0.0-0.7); #Lymphocytes 1.4 thou/uL (1.20-3.40); #Monocytes 0.4 thou/uL (0.11-0.59); #Neutrophils 2.2 thou/uL (1.40-6.50); %Basophils 0.3 % (0.0-1.0); %Eosinophils 2.7 % (0.0-10.0); %Lymphocytes 34.2 % (21.0-51.0); %Monocytes 10.2 % (0.0-10.0); %Neutrophils 52.6 % (42.0-75.0); Anisocytosis SLIGHT = 6-15 cells (100X) (0-5/hpf); Eosinophils 2 % (0-10); Hypochromia MODERATE=16-30 cells (100X) (0-5/hpf); Lymphocytes 47 % (21-51); MDiff Complete? YES; Mean Platelet Volume 5.5 fL (7.4-10.4); Microcytosis SLIGHT = 6-15 cells (100X) (0-5/hpf); Monocytes 8 % (0-10); Neutrophil 42 % (42-75); Nucleated RBC 1 % (0); PLT Morphology Comment Appears Decreased; Polychromasia SLIGHT = 2-3 cells (100X) (0-2/hpf); Reactive Lymphocytes 1 % (0-10); Tear Drops SLIGHT = 2-5 cells (100X) (0-1/hpf)
--- NOTE | 2018-07-25 10:41 | DIS ---
DATE OF ADMISSION: 07/23/2018 DATE OF DISCHARGE: 07/25/2018 PRIMARY CARE PHYSICIAN: Dr. John Zavala. DISCHARGE DISPOSITION: Home. PRIMARY DISCHARGE DIAGNOSES: 1. Acute kidney failure. 2. Dehydration, corrected. 3. Acute on chronic anemia due to dilutional mechanical fall at home 4. Hyperchloremic acidosis. 5. Urinary tract infections. SECONDARY DISCHARGE DIAGNOSES: Normal pressure hydrocephalus ventricular peritoneal shunt status phy sical deconditioning. PRIMARY PROCEDURE/OPERATION: None. RADIOLOGICAL INVESTIGATION: Chest x-ray normal, renal ultrasound normal. SIGNIFICANT LABORATORY DATA: WBC 4.1, hemoglobin 9.1, platelet 144. Sodium 143, creatinine 1.66. F erritin 287. B12, folate and TSH normal. Urinalysis suggestive of UTI. Urine culture grew E. coli. Blood culture negative. Stool occult blood negative. DISCHARGE MEDICATIONS: Amlodipine with valsartan 10/320 one tablet p.o. daily, Bystolic 10 mg p.o. d aily, Omnicef 300 mg p.o. b.i.d. for 7 days, Florastor 250 mg p.o. daily for 7 days. CONTRAINDICATIONS: None. CODE STATUS: FULL. DNR. INPATIENT CONSULTANTS: Dr. Austin was consulted while in hospital. TEST RESULTS PENDING ON DISCHARGE: None. ALLERGIES: CIPROFLOXACIN. DISCHARGE PLAN: Post hospital, the patient will follow up with Dr. Austin and Dr. John Zavala as instr ucted. HOSPITAL COURSE: An 88-year-old female who was admitted by Dr. Blackwell. Please see her H and P for further detail. The patient had a mechanical fall at home. The patient was clinically dehydrated. Her creatinine was elevated on admission. She was significantly weak. She required admission in [facility]. She also had UTI while in hospital. On admission, her creatinine was 2.75. On discharge, he r creatinine is 1.66. She had hyperchloremic acidosis that was also taken care of while in hospital. She has anemia, but that is related with a dilutional anemia. Stool for guaiac is negative. This patient is doing very well now and she wants to go home. She has significant improvement in her phys ical strength and she does not want to go to rehabilitation. She wanted to go home and we continued all her previous home medication while in hospital. The patient is seen and examined at bedside toda y. Please see my progress note from today for further detail.
== END 2018-07-25 11:08 | disposition home or self-care (01) | DRG 683 ==
LOC: SCSER 09:01 → 2SW 14:00 → OBSVTOIN 07-23 14:58 → T4-A 07-23 17:13
PROVIDERS: ADMIT Internal Medicine Infectious Disease; ATTEND Internal Medicine Infectious Disease
DX: N17.9 Acute kidney failure, unspecified (principal); N39.0 Urinary tract infection, site not specified; G91.2 (Idiopathic) normal pressure hydrocephalus; E86.0 Dehydration; E78.5 Hyperlipidemia, unspecified; D50.9 Iron deficiency anemia, unspecified; Z98.2 Presence of cerebrospinal fluid drainage device; W19.XXXA Unspecified fall, initial encounter; Y93.89 Activity, other specified; Y92.009 Unspecified place in unspecified non-institutional (private) residence as the place of occurrence of the external cause; I12.9 Hypertensive chronic kidney disease with stage 1 through stage 4 chronic kidney disease, or unspecified chronic kidney disease; N18.9 Chronic kidney disease, unspecified; R80.9 Proteinuria, unspecified; D56.3 Thalassemia minor
CPT/HCPCS: 36415; 71045; 76770; 80048; 80053; 81003; 81015; 82274; 82550; 82553; 82607; 82728; 82746; 83540; 83550; 84443; 84484; 85025; 85060; 87040; 87077; 87086; 87186; 90471; 90715; 93005; 96361; 96365; 96375; A4216; G8978-GP-CK; G8979-GP-CI; G8987-GO-CJ; G8988-GO-CI; J0696; J1650; J2405; J2916; J7050